=== PATIENT | female | born 1935 | race Two or more races ===

== ENCOUNTER 2024-10-11 19:35 | Inpatient (IN) | payer OTHER ==
[~2024-10-11] VITALS: Ht 152.4 cm; Wt 61.2 kg
[2024-10-11] MEDS ORDERED: PEPCID AC20 MG (20:23)
[2024-10-11] MEDS ORDERED: ROSUVASTATIN CA20 MG PO (20:23)
[2024-10-11] MEDS ORDERED: METFORMIN HCL500 M3 PO (20:23)
[2024-10-11] MEDS ORDERED: ABATINEX (20:24)
[2024-10-11] MEDS ORDERED: 0.9 % SODIUM CHLORIDE 1,000 ML IV STA (21:06)
[2024-10-11 22:15] LABS: HEMOGLOBIN 13.9 g/dL (12.0-15.00); MEAN CELL VOLUME 91.4 fL (80.00-100.00); MEAN CORPUSCULAR HEMOGLOBIN 30.9 pg (27.00-32.0); MEAN CORPUSCULAR HGB CONC 33.8 g/dl (32.0-36.0); PLATELET COUNT 291 K/uL (150-450); RED BLOOD COUNT 4.48 M/uL (4.00-6.00); RED CELL DISTRIBUTION WIDTH 15.4 % (11.5-14.5)
[2024-10-11 22:29] LABS: URINE APPEARANCE Cloudy; URINE BILIRRUBIN Negative (NEGATIVE); URINE BLOOD Negative; URINE COLOR Yellow; URINE GLUCOSE Negative (NEGATIVE); URINE KETONE Negative (NEGATIVE); URINE LEUKOCYTE Moderate; URINE NITRATE Negative; URINE PROTEIN Negative (NEGATIVE); URINE UROBILINOGEN 0.2 E.U./dl
[2024-10-11 22:33] LABS: URINE EPITHELIAL CELLS 6.8 uL (0.0-38.8); URINE RBC 27.9 uL (0.0-20.8); URINE WBC 376.8 uL (0.0-23.2)
[2024-10-11 22:40] LABS: ALBUMIN 3.5 gm/dL (3.4-5.0); BILIRUBIN TOTAL 0.29 mg/dL (0.3-1.2); CALCIUM 9.6 mg/dL (8.5-10.1); CREATININE SERUM 0.98 mg/dL (0.55-1.02); GFR 53.68; GLOBULINA 3.8 G/DL (2.4-3.5); POTASSIUM 4.14 mEq/L (3.5-5.1); TOTAL PROTEIN 7.3 gm/dL (6.4-8.2)
[2024-10-11 22:50] LABS: INR 0.96; PARTIAL THROMBOPLASTIN TIME 24.9 SECONDS (22.0-34.0); PROTHROMBIN TIME 10.5 SECONDS (9.0-11.5)
[2024-10-11 23:03] LABS: URINE CRYSTALS MANY /HPF
[2024-10-11] MEDS ORDERED: DEXTROSE 50 % IN WATER 0.5 G/ML DISP.SYRIN IV PRN (23:45)
[2024-10-11] MEDS ORDERED: ONDANSETRON HCL 4 MG in 0.9 % SODIUM CHLORIDE 50 ML IV PRN (23:45)
[2024-10-11] MEDS ORDERED: 0.9 % SODIUM CHLORIDE 1,000 ML IV SCH (23:45)
[2024-10-11] MEDS ORDERED: ACETAMINOPHEN 500 MG GEL..CAP PO PRN (23:45)
[2024-10-11] MEDS ORDERED: INSULIN LISPRO 1,000 UNIT/10 ML UNITS SUBCUTANEO PRN (23:45)
[2024-10-11] MEDS ORDERED: FAMOTIDINE/PF 20 MG in 0.9 % SODIUM CHLORIDE 8 ML IV PUSH SCH (23:53)
[2024-10-11] MEDS ORDERED: LACTOBACILLUS ACIDOPHILUS 1 CAP CAP PO SCH (23:54)
[2024-10-11] MEDS ORDERED: CEFTRIAXONE SODIUM 2,000 MG in 0.9 % SODIUM CHLORIDE 100 ML IV SCH (23:54)
[2024-10-12] MEDS ORDERED: CIPROFLOXACIN IN 5 % DEXTROSE 200 ML IV SCH (00:01)
[2024-10-12] MEDS ORDERED: METRONIDAZOLE/SODIUM CHLORIDE 100 ML IV SCH (01:00)
[2024-10-12 04:52] VITALS: BP 129/65
[2024-10-12 09:05] VITALS: BP 114/69; O2SAT 97
[2024-10-12 18:17] VITALS: BP 119/65; O2SAT 97
[2024-10-13 03:32] VITALS: BP 110/63; O2SAT 94
[2024-10-13 10:01] VITALS: BP 142/72; O2SAT 99
[2024-10-13 17:46] VITALS: BP 157/79
[2024-10-14 01:28] VITALS: BP 109/66; O2SAT 97
[2024-10-14 08:17] LABS: HEMATOCRIT 38.7 % (36.0-45.00); HEMOGLOBIN 12.8 g/dL (12.0-15.00); MEAN CELL VOLUME 92.3 fL (80.00-100.00); MEAN CORPUSCULAR HEMOGLOBIN 30.4 pg (27.00-32.0); PLATELET COUNT 249 K/uL (150-450); RED BLOOD COUNT 4.19 M/uL (4.00-6.00); RED CELL DISTRIBUTION WIDTH 15.1 % (11.5-14.5)
[2024-10-14 09:10] LABS: ALBUMIN 2.8 gm/dL (3.4-5.0); BILIRUBIN TOTAL 0.61 mg/dL (0.3-1.2); CALCIUM 8.6 mg/dL (8.5-10.1); CREATININE SERUM 0.61 mg/dL (0.55-1.02); GFR 92.78; GLOBULINA 2.9 G/DL (2.4-3.5); POTASSIUM 4.3 mEq/L (3.5-5.1); TOTAL PROTEIN 5.7 gm/dL (6.4-8.2)
[2024-10-14 10:36] VITALS: BP 114/68; O2SAT 96
[2024-10-14 16:46] VITALS: BP 97/58; O2SAT 96
== END 2024-10-14 16:55 | disposition home or self-care (01) | DRG 690 ==
LOC: ER 19:37 → MEDJ 23:55
PROVIDERS: ADMIT Student in an Organized Health Care Education/Training Program; ATTEND Student in an Organized Health Care Education/Training Program
PROC: BW21ZZZ Computerized Tomography (CT Scan) of Abdomen and Pelvis (ICD-10-PCS; principal; 2024-10-11)
DX: N39.0 Urinary tract infection, site not specified (principal); K52.9 Noninfective gastroenteritis and colitis, unspecified; B96.4 Proteus (mirabilis) (morganii) as the cause of diseases classified elsewhere

== ENCOUNTER 2025-05-16 18:50 | Emergency (ER) | payer OTHER ==
[~2025-05-16] VITALS: Ht 152.4 cm; Wt 59.0 kg
[~2025-05-16 18:50] MED LIST: ABATINEX; METFORMIN HCL500 M3 PO; PEPCID AC20 MG; ROSUVASTATIN CA20 MG PO
[2025-05-16] MEDS ORDERED: KETOROLAC TROMETHAMINE 30 MG VIAL IM ONE (20:00)
[2025-05-16] MEDS ORDERED: ORPHENADRINE CITRATE 30 MG/ML AMPUL IM ONE (20:00)
[2025-05-16] MEDS ORDERED: ORPHENADRINE CITRATE 30 MG/ML AMPUL ONE (21:20)
[2025-05-16] MEDS ORDERED: KETOROLAC TROMETHAMINE 30 MG VIAL ONE (21:20)
== END 2025-05-17 02:06 | disposition home or self-care (01) ==
LOC: ER 18:50
DX: S32.591A Other specified fracture of right pubis, initial encounter for closed fracture (principal); W19.XXXA Unspecified fall, initial encounter; Y93.89 Activity, other specified; Y92.098 Other place in other non-institutional residence as the place of occurrence of the external cause; Y99.8 Other external cause status; M25.559 Pain in unspecified hip; Z88.1 Allergy status to other antibiotic agents; Z88.8 Allergy status to other drugs, medicaments and biological substances
CPT/HCPCS: 73551; 73560; 74176; 96372; 99284; J1885; J2360